=== PATIENT | male | born 1980 | race American Indian/Alaskan Native ===

== ENCOUNTER 2020-11-12 05:31 | Emergency (ER) | payer OTHER, MEDICARE ==
[2020-11-12 05:46] VITALS: BP 101/66
[2020-11-12] MEDS ORDERED: HYDROcodone/ACETAMINOPHEN 5-325 MG TAB PO ONE (06:00)
[2020-11-12] MEDS ORDERED: ONDANSETRON 4 MG ODT TAB PO ONE (06:00)
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
[2020-11-12] MEDS ORDERED: IBUPROFEN 800 MG TAB PO ONE (09:23)
[2020-11-12] MEDS ORDERED: ACETAMINOPHEN 325 MG TAB PO ONE (09:23)
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
== END 2020-11-12 10:02 | disposition home or self-care (01) ==
LOC: ED 05:31
DX: S06.0X9A Concussion with loss of consciousness of unspecified duration, initial encounter (principal); S39.012A Strain of muscle, fascia and tendon of lower back, initial encounter; S16.1XXA Strain of muscle, fascia and tendon at neck level, initial encounter; Z79.899 Other long term (current) drug therapy; V49.49XA Driver injured in collision with other motor vehicles in traffic accident, initial encounter; Y93.89 Activity, other specified; Y92.488 Other paved roadways as the place of occurrence of the external cause; Y99.8 Other external cause status
CPT/HCPCS: 70450; 72125; 72128; 72131; Q0162